=== PATIENT | male | born 1960 | race Caucasian/White ===

== ENCOUNTER 2018-05-07 11:44 | Emergency (ER) | payer OTHER ==
[2018-05-07] MEDS ORDERED: Orphenadrine Citrate IV* 30 MG/ML 2 ML VIAL IM ONE (12:57)
[2018-05-07] MEDS ORDERED: Ketorolac INJ* 60 MG/2 ML VIAL IM ONE (12:57)
[2018-05-07] MEDS ORDERED: Dexamethasone IV* 4 MG/ML 1 ML (4 MG) IM ONE (12:57)
--- NOTE | 2018-05-07 13:00 | ED ---
Lower Extremity - HPI Summary HPI Summary: This pt is a 58 y/o male presenting to [facility] c/o acute on chronic knee pain since yesterday. Pt reports he has hx of chronic knee pain for which he takes anti-inflammatories. He states that yesterday he came back from an eight hour bus trip and began to feel his knees give out. He notes his knee pain is chronic but knees giving out is new. Pt reports that within the past 5 hours today he has fallen about 3 times. Denies LOC or head strike. Pt additionally notes lower back pain. Denies fever, chills, chest pain, SOB, numbness, tingling. His PCP is Dr. Green. Pt reports he was recently taking amoxicillin for a sinus infection. - History of Current Complaint Chief Complaint: EDExtremityLower Stated Complaint: KNEE PAIN AND BACK PAIN Time Seen by Provider: 05/07/18 12:48 Hx Obtained From: Patient Mechanism Of Injury: Other - no trauma Onset of Pain: Hours Onset/Duration: Still Present Severity Currently: Moderate Pain Intensity: 6 Pain Scale Used: 0-10 Numeric Timing: Constant, Lasting Hours Location: Is Discrete @ - knees bilateral Associated Signs And Symptoms: Positive: Weakness, Knee Pain. Negative: Swelling, Redness, Bruising, Fever, Dizziness, Syncope, Abdominal Pain Aggravating Factor(s): Ambulation Alleviating Factor(s): Rest Able to Bear Weight: Yes - Allergies/Home Medications Allergies/Adverse Reactions: Allergies Allergy/AdvReac Type Severity Reaction Status Date / Time No Known Allergies Allergy Verified 05/07/18 11:56 Home Medications: Home Medications Diclofenac Sodium EC TAB* [Voltaren EC TAB*] 75 mg PO BID WITH MEALS 05/07/18 [ History Confirmed 05/07/18] Lisinopril/HCTZ 20/12.5(NF) [Zestoretic 20/12.5(NF)] 1 tab PO DAILY 05/07/18 [ History Confirmed 05/07/18] amLODIPine TAB* [Norvasc 5 mg TAB*] 10 mg PO DAILY 05/07/18 [History Confirmed 05/07/18] PMH/Surg Hx/FS Hx/Imm Hx Endocrine/Hematology History: Denies: Hx Diabetes Cardiovascular History: Reports: Hx Hypertension Musculoskeletal History: Reports: Other Musculoskeletal History - chronic knee pain Infectious Disease History: No Infectious Disease History: Denies: Traveled Outside the [place] in Last 30 Days - Family History Known Family History: Negative: Cardiac Disease - Social History Alcohol Use: None Substance Use Type: Reports: None Smoking Status (MU): Never Smoked Tobacco Review of Systems Negative: Fever, Chills Eyes: Negative Negative: Chest Pain Negative: Shortness Of Breath Gastrointestinal: Negative Genitourinary: Negative Musculoskeletal: Other - lower back pain, knee pain, knee giving out Positive: Weakness - at knees. Negative: Paresthesia, Numbness All Other Systems Reviewed And Are Negative: Yes Physical Exam - Summary Physical Exam Summary: VITAL SIGNS: Reviewed. GENERAL: Patient is an obese male who is lying comfortable in the stretcher. Patient is not in any acute respiratory distress. HEAD AND FACE: No signs of trauma. No ecchymosis, hematomas or skull depressions. No sinus tenderness. EYES: PERRLA, EOMI x 2, No injected conjunctiva, no nystagmus. EARS: Hearing grossly intact. Ear canals and tympanic membranes are within normal limits. MOUTH: Oropharynx within normal limits. NECK: Supple, trachea is midline, no adenopathy, no JVD, no carotid bruit, no c- spine tenderness, neck with full ROM. CHEST: Symmetric, no tenderness at palpation LUNGS: Clear to auscultation bilaterally. No wheezing or crackles. CVS: Regular rate and rhythm, S1 and S2 present, no murmurs or gallops appreciated. ABDOMEN: Soft, non-tender. No signs of distention. No rebound, no guarding, and no masses palpated. Bowel sounds are normal. EXTREMITIES: FROM in all major joints, no edema, no cyanosis or clubbing. Pt is able to stand up without difficulty. There is no swelling, ecchymosis, or deformity at knees. NEURO: Alert and oriented x 3. No acute neurological deficits. Speech is normal and follows commands. SKIN: Dry and warm Triage Information Reviewed: Yes Vital Signs On Initial Exam: Initial Vitals Temp Pulse Resp BP Pulse Ox 99.5 F 100 20 166/81 98 05/07/18 11:50 05/07/18 11:50 05/07/18 11:50 05/07/18 11:50 05/07/18 11:50 Vital Signs Reviewed: Yes Diagnostics - Vital Signs Vital Signs Temp Pulse Resp BP Pulse Ox 10/04/18 11:50 99.5 F 100 20 166/81 98 - Laboratory Lab Statement: Any lab studies that have been ordered have been reviewed, and results considered in the medical decision making process. - Radiology Lumbar spine XR Xray Interpretation: No Acute Changes - IMPRESSION: Limited exam due to obliquity on the lateral view. No gross evidence for fracture. Multilevel degenerative spondylosis and facet joint osteoarthritis. Dr. Barcenas has reviewed this report. Radiology Interpretation Completed By: Radiologist Bilateral knee XR Xray Interpretation: No Acute Changes - IMPRESSION: 1. Osteopenia. 2. Bilateral osteoarthritis. 3. No acute osseous injury. If symptoms persist, recommend repeat imaging. Dr. Barcenas has reviewed this report. Radiology Interpretation Completed By: Radiologist Re-Evaluation - Re-Evaluation First Eval Re-Evaluation Time: 14:15 Comment: I reviewed the XR reports with the pt. He will be discharged home. Lower Extremity Course/Dx - Course Assessment/Plan: This pt is a 58 y/o male presenting to [facility] c/o acute on chronic knee pain since yesterday. Pt reports he has hx of chronic knee pain for which he takes anti-inflammatories. He states that yesterday he came back from an eight hour bus trip and began to feel his knees give out. He notes his knee pain is chronic but knees giving out is new. Pt reports that within the past 5 hours today he has fallen about 3 times. Denies LOC or head strike. Pt additionally notes lower back pain. Denies fever, chills, chest pain, SOB, numbness, tingling. His PCP is Dr. Green. Pt reports he was recently taking amoxicillin for a sinus infection. Knee x-ray impression: Osteopenia, bilateral was to arthritis, no acute osseous injury. X-ray of the lumbar spine impression: Limited exam. No gross evidence of fracture. Multilevel degenerative spondylolysis and facet joint osteoarthritis. The ED course the patient was given Toradol, Decadron, and Norflex and now the patient is feeling better. Therefore the patient will be discharged home with follow-up from primary care physician. Patient is ambulating out of the ER with a good steady walk. The patient doesnt have any ataxia. He will be given a prescription for Flexeril and Bellwood. Patient is hemodynamically stable alert and oriented 3. - Diagnoses Differential Diagnosis/HQI/PQRI: Positive: Contusion, Fracture (Closed), Sprain , Strain, Tendonitis Provider Diagnoses: Back pain, Knee pain Discharge - Sign-Out/Discharge Documenting (check all that apply): Patient Departure - Discharge home - Discharge Plan Condition: Stable Disposition: HOME Prescriptions: Cyclobenzaprine TAB* [Flexeril 10 MG TAB*] 10 mg PO TID PRN #10 tab PRN Reason: Spasms - Back Hydrocodone/Acetaminophen [Bellwood 5-325 Tablet] 1 each PO Q6H PRN #10 tablet MDD 4 PRN Reason: Pain Patient Education Materials: Knee Pain (ED), Back Pain (ED) Referrals: Lukas Green MD [Primary Care Provider] - Additional Instructions: FOLLOW UP WITH YOUR PRIMARY CARE PROVIDER WITHIN ONE WEEK FOR HIGH BLOOD PRESSURE NOTED TODAY. RETURN TO THE ED FOR ANY NEW OR WORSENING SYMPTOMS. - Attestation Statements Document Initiated by Scribe: Yes Documenting Scribe: Tara Acevedo Provider For Whom Scribe is Documenting (Include Credential): Terell Barcenas MD Scribe Attestation: Tara Samuel, scribed for Terell Barcenas MD on 05/07/18 at 1432.
--- NOTE | 2018-05-07 14:01 | RAD ---
HISTORY: knee pain COMPARISONS: None VIEWS: 5 , Frontal and lateral views of the left knee and of the right knee FINDINGS: Right: BONE DENSITY: There is diffuse osteopenia. BONES: There is no displaced fracture. JOINTS: There is advanced tricompartmental osteoarthritis. There is no suprapatellar joint effusion or lipohemarthrosis. ALIGNMENT: There is no dislocation. The alignment is anatomic. SOFT TISSUES: Unremarkable. Left: BONE DENSITY: There is diffuse osteopenia. BONES: There is no displaced fracture. JOINTS: There is advanced tricompartmental osteoarthritis. There is no suprapatellar joint effusion or lipohemarthrosis. ALIGNMENT: There is no dislocation. The alignment is anatomic. SOFT TISSUES: Unremarkable. OTHER FINDINGS: None. IMPRESSION: 1. OSTEOPENIA. 2. BILATERAL OSTEOARTHRITIS. 3. NO ACUTE OSSEOUS INJURY. IF SYMPTOMS PERSIST, RECOMMEND REPEAT IMAGING
--- NOTE | 2018-05-07 14:03 | RAD ---
Indication: Back pain. Multiple falls. Comparison: No relevant prior exams available on the [facility] for comparison. Technique: AP and lateral views lumbar sacral spine. Report: Obliquity on the lateral view limits assessment. Slight RIGHT convex curve centered at the L2 level below the threshold for scoliosis. Straightening relative to normal lumbar lordosis without significant spondylolisthesis at any level. No fracture evident. Multilevel vertebral endplate osteophytosis and moderate joint space narrowing. More significant advanced joint space narrowing at the L5-S1 level with associated reactive endplate sclerosis. Facet joint osteoarthritis most prominent at L4-L5 and L5-S1. Unremarkable paraspinal soft tissue contours. IMPRESSION: #. Limited exam due to obliquity on the lateral view. #. No gross evidence for fracture. #. Multilevel degenerative spondylosis and facet joint osteoarthritis.
[2018-05-07 14:31] VITALS: BP 140/79
== END 2018-05-07 14:30 | disposition home or self-care (01) ==
LOC: ED 11:44
DX: M54.5 Low back pain (principal); M25.562 Pain in left knee; M25.561 Pain in right knee; G89.29 Other chronic pain; I10 Essential (primary) hypertension; Z79.899 Other long term (current) drug therapy
CPT/HCPCS: 72100; 96372; 99282; J1100; J1885; J2360